=== PATIENT | female | born 1995 | race Hispanic/Latino ===

== ENCOUNTER 2018-09-13 20:44 | Emergency (ER) | payer OTHER ==
[~2018-09-13] VITALS: Ht 152.4 cm; Wt 45.5 kg
--- OUTSIDE RECORDS SUMMARY | 2018-09-13 20:47 | XMS REPORT ---
Author Author [facility] Address Unknown Phone Unavailable Care Team Providers Care Inventory Control Clerk Name Role Phone Unavailable Unavailable Payers Payer Name Policy Type Policy Number Effective Date Expiration Date Problems This patient has no known problems. Allergies, Adverse Reactions, Alerts Allergy Name Allergy Type Status Severity Reaction(s) Onset Date Inactive Date Treating Clinician Comments No Known Allergies DA Active U 2015-11-08 00:00:00 Medications This patient has no known medications.
--- OUTSIDE RECORDS SUMMARY | 2018-09-13 20:47 | XMS REPORT | Clinical Summary ---
Author Author [facility] Address Unknown Phone Unavailable Care Team Providers Care Country Singer Name Role Phone Asked, No Pcp PCP Unavailable Allergies No Known Allergies Medications End Date Status Medication Sig Dispensed Refills Start Date Active AMNESTEEM 40 mg capsule TK ONE C PO 0 BID 8 12/14/2017 Discontinued M-M-R II, PF, ADM 0.5ML SC 0 1,000-12,500 TCID50/0.5 UTD 7 mL injection 12/14/2017 Discontinued FLUVIRIN 0602-7446, PF, ADM 0.5ML IM 0 45 mcg (15 mcg x 3)/0.5 UTD 7 mL syringe 12/14/2017 Discontinued clindamycin (CLEOCIN T) 1 SYLVIE TO FACE 3 % external solution ONCE D 8 12/14/2017 Discontinued sulfamethoxazole-trimetho TK 1 T PO BID 0 prim (BACTRIM DS) 800-160 WF 8 mg per tablet 12/18/2017 azithromycin (ZITHROMAX) Take 2 2 tablet 0 500 MG tablet tablets 8 (1,000 mg total) by mouth once for 1 dose. 12/25/2017 metroNIDAZOLE (FLAGYL) Take 1 tablet 14 tablet 0 500 MG tablet (500 mg 8 total) by mouth 2 (two) times a day for 7 days. 08/21/2018 nitrofurantoin, Take 1 14 capsule 0 macrocrystal-monohydrate, capsule (100 9 (MACROBID) 100 MG capsule mg total) by mouth 2 (two) times a day for 7 days. Active Problems No known active problems Encounters Care Team Description Date Type Specialty Urinary frequency (Primary Dx); Pelvic pain; Leukocytes in urine 08/14/2018 Clinical Obstetrics and Gynecology Support Liat Cano MD Chlamydia contact, treated (Primary Dx) 01/11/2018 Office Visit Obstetrics and Gynecology Yris Foote RN 12/19/2017 Telephone Obstetrics and Gynecology Liat Cano MD 12/18/2017 Refill Obstetrics and Gynecology Liat Cano MD 12/18/2017 Orders Only Obstetrics and Gynecology Liat Cano MD Chronic vaginitis (Primary Dx); Pap smear for cervical cancer screening 12/14/2017 Office Visit Obstetrics and Gynecology after 09/12/2017 Family History Medical History Relation Name Comments Hypertension Mother Relation Name Status Comments Mother Social History Date Tobacco Use Types Packs/Day Years Used Never Smoker Smokeless Tobacco: Never Used Alcohol Use Drinks/Week oz/Week Comments No Sex Assigned at Date Recorded Not on file Industry Job Start Date Occupation Not on file Not on file Not on file Travel End Travel History Travel Start No recent travel history available. Last Filed Vital Signs Time Taken Vital Sign Reading 01/11/2018 9:00 AM CDT Blood Pressure 119/81 01/11/2018 9:00 AM CDT Pulse 73 - Temperature - - Respiratory Rate - - Oxygen Saturation - - Inhaled Oxygen - Concentration 01/11/2018 9:00 AM CDT Weight 47.3 kg (104 lb 3.2 oz) 01/11/2018 9:00 AM CDT Height 152.4 cm (5') 01/11/2018 9:00 AM CDT Body Mass Index 20.35 Plan of Treatment Care Team Description Date Type Specialty Alma Rosa Wetzel MD [address] [facility] [address] [place] [address] [phone] 12/17/2018 Office Visit Obstetrics and Gynecology Health Maintenance Due Date Last Done Comments INFLUENZA VACCINE 12/20/2018 02/14/2018 CERVICAL CANCER SCREENING 11/11/2019 11/10/2016 Procedures Comments Procedure Name Priority Date/Time Associated Diagnosis URINE CULTURE Routine 08/14/2018 Urinary frequency 8:46 AM CDT Pelvic pain Leukocytes in urine POC URINALYSIS DIPSTICK Routine 08/14/2018 Urinary frequency 8:42 AM CDT Pelvic pain CHLAMYDIA/N. GONORRHOEAE Routine 01/11/2018 Chlamydia contact, RNA, TMA 9:21 AM CDT treated SURESWAB(R), CANDIDIASIS, Routine 12/14/2017 PCR (REFLEX) 3:31 PM CDT SURESWAB(R) TRICHOMONAS Routine 12/14/2017 VAGINALIS RNA, QL, TMA 3:31 PM CDT SURESWAB(R) BACTERIAL Routine 12/14/2017 VAGINOSIS DNA, QN, PCR 3:31 PM CDT (REFLEX) CHLAMYDIA/N. GONORRHOEAE Routine 12/14/2017 RNA, TMA (REFLEX) 3:31 PM CDT THINPREP TIS PAP RFX HPV Routine 12/14/2017 Pap smear for cervical 3:30 PM CDT cancer screening after 09/12/2017 Results * Urine culture (08/14/2018 8:46 AM CDT) Urine culture SEE NOTE [facility] Comment: [place] CULTURE, URINE, ROUTINE MICRO NUMBER:[id number] TEST STATUS: FINAL SPECIMEN SOURCE: URINE SPECIMEN QUALITY:ADEQUATE RESULT: Multiple organisms present, each less than 10,000 CFU/mL. These organisms, commonly found on external and internal genitalia, are considered to be colonizers. No further testing performed. Specimen Urine Resulting Agency Comment Performing Organization Information: Site ID: [id number] [facility]: [facility] Address: [address] [place] [phone] Director: Cecille Allred Performing Organization Address City/State/Zipcode Phone [place] [email or web address] [address] * POC urinalysis dipstick (08/14/2018 8:42 AM CDT) Color urine, POC Yellow Clarity urine, POC Cloudy Glucose urine, POC Negative Negative Bilirubin urine, POC Negative Negative Ketones urine, POC Negative Negative Specific gravity urine, </=1.005 1.005 - 1.030 POC Blood urine, POC Negative Negative pH urine, POC 6.0 5.0, 5.5, 6.0, 6.5, 7.0, 7.5, 8.0, 8.5 Protein urine, POC Negative Negative Urobilinogen urine, POC <2.0 <2.0 Nitrite urine, POC Negative Negative Leukocyte esterase urine, Moderate (A) Negative POC Specimen Urine * CHLAMYDIA/N. GONORRHOEAE RNA, TMA (01/11/2018 9:21 AM CDT) Chlamydia trachomatis NOT DETECTED NOT DETECTED [facility] RNA, TMA [place] Neisseria gonorrhoeae NOT DETECTED NOT DETECTED [facility] RNA, TMA [place] (Always message) Comment: [facility] This test was performed using [place] the APTIMA COMBO2 Assay ([employer] The analytical performance characteristics of this assay, when used to test SurePath specimens have been determined by [facility]. Specimen Swab Resulting Agency Comment Performing Organization Information: Site ID: [id number] Name: [facility] Address: [address] [place] [phone] Director: Cecille Allred Performing Organization Address City/State/Zipcode Phone Number [email or web address] [address] * SURESWAB(R), CANDIDIASIS, PCR (12/14/2017 3:31 PM CDT) C. albicans, DNA NOT DETECTED [facility] C. glabrata, DNA NOT DETECTED [facility] C. tropicalis, DNA NOT DETECTED [facility] C. parapsilosis, DNA NOT DETECTED [facility] Comment: REFERENCE RANGE: NOT DETECTED This test was developed and its analytical performance characteristics have been determined by [facility]. It has not been cleared or approved by FDA. This assay has been validated pursuant to the CLIA regulations and is used for clinical purposes. Resulting Agency Comment Performing Organization Information: Site ID: [id number] Name: [facility] Address: [address] [place] [phone] Director: Wing Dyer MD Performing Organization Address City/State/Zipcode Phone Number [facility] [address] [place] [address] [phone] * SURESWAB(R) TRICHOMONAS VAGINALIS RNA, QL, TMA (Reflex) (12/14/2017 3:31 PM CDT) Sureswab(r) trichomonas NOT DETECTED [facility] vaginalis RNA, QL, TMA Comment: REFERENCE RANGE: NOT DETECTED This test was performed using the APTIMA(R) Trichomonas vaginalis assay (Gen-Probe(R)). For additional information, please refer to http://education.Jampp.com/faq/Trichomonastma Resulting Agency Comment Performing Organization Information: Site ID: [id number] Name: [facility] Address: [address] [place] [phone] Director: Wing Dyer MD Performing Organization Address City/State/Zipcode Phone Number [facility] [address] [place] [address] [phone] * SURESWAB(R) BACTERIAL VAGINOSIS DNA, QN, PCR (12/14/2017 3:31 PM CDT) BV category NOT SUPPORTIVE [facility] Lactobacillus species 6.0 Log (cells/mL) [facility] Atopobium vaginae NOT DETECTED Log (cells/mL) [facility] Megasphaera species NOT DETECTED Log (cells/mL) [facility] Gardnerella vaginalis 5.3 Log (cells/mL) [facility] Comment: REFERENCE RANGE: BV Category: NOT SUPPORTIVE NOT SUPPORTIVE OF BV: The pattern of results is not supportive of a diagnosis of BV: 1) Presence of Lactobacillus spp., G. vaginalis levels less than 6.0 log cells/mL, and absence of A. vaginae and Megasphaera spp; or 2) Absence of all targeted organisms; or 3) Absence of Lactobacillus spp. plus G. vaginalis detected at levels less than 6.0 log cells/mL and absence of A. vaginae and Megasphaera spp. EQUIVOCAL FOR BV: The pattern of results is neither supportive nor not supportive of a diagnosis of BV. The patient may be in transition into or out of BV: Presence of Lactobacillus spp. plus G. vaginalis (greater or equal to 6.0 log cells/mL) and/or one of the other BV-associated pathogens. SUPPORTIVE OF BV: The pattern of results is supportive of a diagnosis of BV: Absence of Lactobacillus spp. and presence of G. vaginalis greater than or equal to 6.0 log cells/mL and/or one or both of the other BV-associated pathogens. Concentration for Lactobacilli (L. acidophilus/crispatus, L. jensenii) are collectively reported under the term "Lactobacillus spp.", as these species are among the peroxide producing Lactobacilli thought to be protective against bacterial vaginosis. Atopobium vaginae, Megasphaera spp., and Gardnerella (greater than 6.0 log cells/mL) have been associated with vaginosis when present in the absence of peroxidase producing Lactobacilli. This test was developed and its analytical performance characteristics have been determined by [employer]. It has not been cleared or approved by FDA. This assay has been validated pursuant to the CLIA regulations and is used for clinical purposes. Resulting Agency Comment Performing Organization Information: Site ID: [id number] Name: [facility] Address: [address] [place] [phone] Director: Wing Dyer MD Performing Organization Address City/[facility] Cent[facility] Phone Number [facility] [address] [place] [address] [phone] * CHLAMYDIA/N. GONORRHOEAE RNA, TMA (12/14/2017 3:31 PM CDT) Chlamydia trachomatis DETECTED (A) [facility] RNA, TMA Comment: A positive CT or NG Nucleic Acid Amplification Test (NAAT) result should be interpreted in conjunction with other laboratory and clinical data available to the clinician. If clinically indicated, further testing can be performed on the same sample using an alternate molecular target. To order alternate target test use 47[address] (C. trachomatis) [place] [address] (N. gonorrhoeae). Neisseria gonorrhoeae NOT DETECTED [facility] RNA, TMA Comment: REFERENCE RANGE:NOT DETECTED This test was performed using the APTIMA(R) COMBO2 Assay ([employer]). http://education.Jampp.Prezto/faq/XSS092 (This link is being provided for informational/ educational purposes only.) Resulting Agency Comment Performing Organization Information: Site ID: [id number] Name: [facility] Address: [address] [place] [phone] Director: Wing Dyer MD Performing Organization Address City/State/[facility] Centercode Phone Number [facility] [address] [place], [place] [phone] * THINPREP TIS PAP RFX HPV (12/14/2017 3:30 PM CDT) Clinical information None given [facility] [place] Date of last menstrual NONE GIVEN [facility] period KAT Prev. pap: NONE GIVEN [facility] [place] Prev. bx: NONE GIVEN [facility] [place] Source None given [facility] [place] Statement of adequacy Comment: [facility] Satisfactory for evaluation. [place] Endocervical/transformation zone component present. Interpretation/result: Comment: Negative for [facility] intraepithelial lesion or [place] malignancy. Comment Comment: [facility] Tip of collection device in [place] vial This Pap test has been evaluated with computer assisted technology. Chartered Financial Analyst Comment: [facility] JRR, CT (ASCP) [place] CT screening location: [address], [place] [address] Comment Comment: [facility] EXPLANATORY NOTE: [place] The Pap is a screening test for cervical cancer. It is not a diagnostic test and is subject to false negative and false positive results. It is most reliable when a satisfactory sample, regularly obtained, is submitted with relevant clinical findings and history, and when the Pap result is evaluated along with historic and current clinical information. Specimen Cervical Resulting Agency Comment Performing Organization Information: Site ID: [id number] Name: [facility] Address: [address] [place] [phone] Director: Cecille Allred Performing Organization Address City/[facility]/Zipcode Phone Number [place] [facility] [place] [address] [place], [place] [phone] after 09/12/2017 Insurance Payer Benefit Subscriber ID Type Phone Address Plan / Group AETNA AETNA PPO xxxxxxxxxx PPO OPEN CHOICE Advance Directives Patient has advance care planning documents on file. For more information, juan montgomery contact: [facility] [address] [place] [address]
[2018-09-13] MEDS ORDERED: SODIUM CHLORIDE 0.9% 1000ML 1,000 ML IV STA (21:11)
[2018-09-13] MEDS ORDERED: ONDANSETRON HCL INJ 2MG/ML 2ML 2 MG/ML VIAL IV ONE (21:15)
[2018-09-13] MEDS ORDERED: KETOROLAC TROMETHAMINE 30 MG/ML VIAL IV ONE (21:15)
[2018-09-13] MEDS ORDERED: ACETAMINOPHEN 325 MG TAB PO ONE (21:15)
--- NOTE | 2018-09-13 23:18 | Diagnostic Imaging Report ---
EXAM: CT Abdomen and Pelvis WITH contrast INDICATION: Right lower quadrant pain. COMPARISON: None. TECHNIQUE: Abdomen and pelvis were scanned utilizing a multidetector helical scanner from the lung base to the pubic symphysis after administration of IV contrast. Coronal and sagittal reformations were obtained. Routine protocol was performed. Scan was performed when during portal venous phase. IV CONTRAST: 150 mL of Omnipaque 300 ORAL CONTRAST: Water RADIATION DOSE: Total DLP: 261.91 mGy*cm Estimated effective dose: (DLP x 0.015 x size factor) mSv COMPLICATIONS: None FINDINGS: LINES and TUBES: None. LOWER THORAX: Unremarkable HEPATOBILIARY: No focal hepatic lesions. No biliary ductal dilation. GALLBLADDER: No radio-opaque stones or sludge. No wall thickening. SPLEEN: No splenomegaly. PANCREAS: No focal masses or ductal dilatation. ADRENALS: No adrenal nodules KIDNEYS/URETERS: Kidneys enhance symmetrically. No hydronephrosis. No cystic or solid mass lesions. No stones. GI TRACT: No bowel dilatation to suggest obstruction. A normal appendix is not visualized. There is mild fat stranding in the right hemipelvis anteriorly, best seen on axial images 60 and 61, associated with a thick-walled structure with luminal gas, as seen on axial images 60 series 2 as inflamed bowel loop. PELVIC ORGANS/BLADDER: The uterus is retroverted. There is anterior intrauterine which appears malpositioned in abnormal orientation. Prominence periuterine, gonadal vasculature. Prominence of the right adnexa, measuring 3.2 x 3.0 cm on image 62, with heterogeneity which may represent a mildly swollen right ovary. LYMPH NODES: No lymphadenopathy. VESSELS: Unremarkable. PERITONEUM / RETROPERITONEUM: No free air or fluid. BONES: Unremarkable. SOFT TISSUES: Unremarkable. IMPRESSION: 1. Mild inflammatory changes in the anterior right hemipelvis, associated with what appears represent a mildly inflamed bowel loop, possibly focal ileitis. Please correlate clinically. 2. A normal appendix is not identified. Consider a follow-up CT abdomen and pelvis with positive water soluble contrast medium (wait at least 2 hours follow administration to ensure it reaches terminal ileum and cecum). 3. Prominent right ovary with a corpus luteum. Intrauterine device appears abnormal in position. Ultrasound pelvis may be helpful for further evaluation. Signed by: Dr. Magui Ayon M.D. on 09/13/2018 11:14 PM
[2018-09-14 01:26] VITALS: BP 119/72
== END 2018-09-13 23:50 | disposition home or self-care (01) ==
LOC: FSED 20:44
DX: R10.31 Right lower quadrant pain (principal); R10.2 Pelvic and perineal pain; N30.90 Cystitis, unspecified without hematuria
CPT/HCPCS: 74177; 80053; 81003; 81025; 85025; 96374; 96375; 99284; J1885; J2405; J7030